=== PATIENT | female | born 1945 | race Caucasian/White ===

== ENCOUNTER 2018-02-25 17:33 | Emergency (ER) | payer MEDICARE, OTHER ==
[~2018-02-25] VITALS: Ht 154.9 cm; Wt 64.4 kg
[~2018-02-25 17:33] MED LIST: ASPIR 8181 MG PO; HYDROCODONE-AP1 EAC6 PO; LIPITOR 20 MG T20 M1 PO; LOPRESSOR 50 MG50 M1 PO; NOHOMEMEDICATIONS; NORVASC5 MG PO; PROBIOTIC1 EAC1 PO; TRANSDERM-SCO1 PATC1 TD; VALIUM5 MG PO; VITAMIN B122500 MCG PO
[2018-02-25 18:18] LABS: URINE BILIRUBIN NEGATIVE (Negative); URINE BLOOD 3+ (Negative); URINE CLARITY CLEAR; URINE COLOR STRAW; URINE GLUCOSE-RANDOM NEGATIVE (Negative); URINE KETONES NEGATIVE (Negative); URINE LEUKOCYTES-REFLEX TRACE (Negative); URINE NITRITE-REFLEX NEGATIVE (Negative); URINE PROTEIN NEGATIVE (Negative); URINE SPECIFIC GRAVITY <= 1.005 (1.005-1.030); URINE UROBILINOGEN 0.2 E.U./dl (0.2-1.0)
[2018-02-25 18:19] LABS: ABSOLUTE LYMPHOCYTES 1.3 thou/uL (0.8-5.3); ABSOLUTE MONOCYTES 0.7 thou/uL (0.0-1.2); ABSOLUTE NEUTROPHILS 6.2 thou/uL (1.6-8.1); BASOPHILS 0.4 %; EOSINOPHILS 0.5 %; HEMATOCRIT 36.5 % (37.0-47.0); HEMOGLOBIN 12.3 gm/dL (12.0-15.0); LYMPHOCYTES 15.4 %; MCH 28.8 pg (26.0-34.0); MCHC 33.6 g/dL (28.0-37.0); MCV 85.5 fL (80.0-100.0); MONOCYTES 8.5 %; MPV 7.9 fl. (7.2-11.1); NUCLEATED RBCS 0 /100WBC; PLATELET COUNT* 400 thou/uL (150-400); POLYS 75.2 %; RBC 4.27 mil/uL (4.20-5.00); RDW-CV 14.5 % (10.5-14.5); WBC 8.3 thou/uL (4.0-11.0)
[2018-02-25 18:24] LABS: SQUAMOUS 0-3 Few /LPF (0-3)
[2018-02-25 18:25] LABS: BACTERIA-REFLEX None Seen /HPF (None Seen); CASTS None Seen /LPF (None Seen); CRYSTALS None Seen /LPF (None Seen); MUCUS 0-3 Light strn/LPF (None Seen); URINE WBC-REFLEX 0-5 Rare /HPF (0-5)
[2018-02-25 18:26] LABS: ANION GAP 13 mmol/L (7-16); BUN 18 mg/dL (7-18); CALCIUM 9.2 mg/dL (8.5-10.1); CHLORIDE 103 mmol/L (98-107); CO2 22 mmol/L (21-32); CREATININE 1.4 mg/dL (0.6-1.3); GLUCOSE 113 mg/dL (70-99); POTASSIUM 3.4 mmol/L (3.5-5.1); SODIUM 138 mmol/L (136-145)
[2018-02-25 18:37] LABS: ALBUMIN 2.9 g/dL (3.4-5.0); ALKALINE PHOSPHATASE 128 U/L (46-116); LIPASE 124 U/L (73-393); NT-PRO BRAIN NAT PEPTIDE 773 pg/mL (<300); SGOT 26 U/L (15-37); SGPT 43 U/L (30-65); TOTAL BILIRUBIN 0.3 mg/dL (<0.1-1.0); TOTAL PROTEIN 8.8 g/dL (6.4-8.2); TROPONIN-I LEVEL <0.06 ng/mL (<0.06)
[2018-02-25] MEDS ORDERED: POTASSIUM20 PO (20:35)
[2018-02-25] MEDS ORDERED: LASIX 20 MG TAB20 MG PO (20:35)
[2018-02-25 20:56] VITALS: BP 138/81
--- NOTE | 2018-02-26 14:57 | EKG ---
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: Luis JACOBO : 1945 Requested By: Lolis Goodwin Order Number: [id number] MD: Osvaldo Livingston Measurements Intervals [place] Rate: 83 P: 62 AK: 172 QRS: 16 QRSD: 86 T: -5 QT: 355 QTc: 418 Interpretive Statements Sinus rhythm Low voltage, precordial leads Compared to ECG 11/16/2015 11:34:57 Low QRS voltage now present Sinus bradycardia no longer present Electronically Signed On 02-26-2018 14:57:05 CDT by Osvaldo Livingston [email or web address] <ELECTRONICALLY SIGNED> By: Osvaldo Livingston MD, FAC 02/26/18 1457 1806 1806 Osvaldo Livingston MD, [facility] /EPI
[2018-07-18] MEDS ORDERED: CARVEDILOL12.5 MG PO (13:05)
[2018-07-18] MEDS ORDERED: HYDRALAZINE 10M10 MG PO (13:06)
[2018-07-18] MEDS ORDERED: PREDNISONE 20 M20 MG PO (13:07)
[2018-07-18] MEDS ORDERED: VITAMIN D2000 UNIT PO (13:08)
[2018-07-18] MEDS ORDERED: IRON325 PO (13:08)
[2018-07-18] MEDS ORDERED: NORCO 5-325 TA1 EACH PO (13:09)
[2018-07-18] MEDS ORDERED: ONDANSETRON HCL4 M2 PO (13:09)
[2018-07-18] MEDS ORDERED: ATIVAN0.5 MG PO (13:10)
[2018-07-18] MEDS ORDERED: CALCIUM ACETAT667 MG PO (13:12)
[2018-07-25] MEDS ORDERED: NORCO 5-325 TA1 EACH PO (08:48)
== END 2018-02-25 20:56 | disposition home or self-care (01) ==
LOC: M.ERS 17:33
PROVIDERS: Physician Assistant
DX: R53.83 Other fatigue (principal); E87.6 Hypokalemia; I10 Essential (primary) hypertension; Z90.49 Acquired absence of other specified parts of digestive tract; Z90.710 Acquired absence of both cervix and uterus; Z88.8 Allergy status to other drugs, medicaments and biological substances

== ENCOUNTER 2018-06-19 08:51 | Emergency (ER) | payer MEDICARE, OTHER ==
[~2018-06-19] VITALS: Ht 154.9 cm; Wt 62.6 kg
[~2018-06-19 08:51] MED LIST changes: +LASIX 20 MG TAB20 MG PO; +POTASSIUM20 PO
[2018-06-19 09:29] LABS: HEMATOCRIT 31.1 % (37.0-47.0); HEMOGLOBIN 10.3 gm/dL (12.0-15.0); MCH 32.8 pg (26.0-34.0); MCHC 33.3 g/dL (28.0-37.0); MCV 98.6 fL (80.0-100.0); MPV 8.2 fl. (7.2-11.1); NUCLEATED RBCS 0 /100WBC; PLATELET COUNT* 195 thou/uL (150-400); RBC 3.16 mil/uL (4.20-5.00); RDW-CV 20.5 % (10.5-14.5); WBC 12.6 thou/uL (4.0-11.0)
[2018-06-19 09:34] LABS: ANION GAP 9 mmol/L (7-16); BUN 43 mg/dL (7-18); CALCIUM 8.1 mg/dL (8.5-10.1); CHLORIDE 98 mmol/L (98-107); CO2 27 mmol/L (21-32); CREATININE 4.8 mg/dL (0.6-1.3); GLUCOSE 103 mg/dL (70-99); POTASSIUM 3.7 mmol/L (3.5-5.1); SODIUM 134 mmol/L (136-145)
[2018-06-19 09:41] LABS: URINE BILIRUBIN NEGATIVE (Negative); URINE BLOOD 3+ (Negative); URINE CLARITY CLEAR; URINE COLOR YELLOW; URINE GLUCOSE-RANDOM NEGATIVE (Negative); URINE KETONES NEGATIVE (Negative); URINE NITRITE-REFLEX NEGATIVE (Negative); URINE PROTEIN 2+ (Negative); URINE SPECIFIC GRAVITY 1.015 (1.005-1.030); URINE UROBILINOGEN 0.2 E.U./dl (0.2-1.0)
[2018-06-19 09:47] LABS: URINE LEUKOCYTES-REFLEX 2+ (Negative)
[2018-06-19 09:54] LABS: ALBUMIN 2.7 g/dL (3.4-5.0); ALKALINE PHOSPHATASE 77 U/L (46-116); LIPASE 281 U/L (73-393); NT-PRO BRAIN NAT PEPTIDE 18393 pg/mL (<300); SGOT 39 U/L (15-37); SGPT 36 U/L (30-65); TOTAL BILIRUBIN 0.2 mg/dL (<0.1-1.0); TOTAL PROTEIN 5.9 g/dL (6.4-8.2); TROPONIN-I LEVEL <0.06 ng/mL (<0.06)
[2018-06-19 09:59] LABS: BACTERIA-REFLEX 1-9 Few /HPF (None Seen); CASTS None Seen /LPF (None Seen); CRYSTALS None Seen /LPF (None Seen); MUCUS 0-3 Light strn/LPF (None Seen); SQUAMOUS 0-3 Few /LPF (0-3); URINE RBC 3-10 Few /HPF (0-2); URINE WBC-REFLEX 6-15 Few /HPF (0-5)
[2018-06-19 10:09] LABS: ABSOLUTE EOSINOPHILS 0.1 thou/uL (0.0-0.7); ABSOLUTE LYMPHOCYTES 1.8 thou/uL (0.8-5.3); ABSOLUTE MONOCYTES 0.3 thou/uL (0.0-1.2); ABSOLUTE NEUTROPHILS 10.5 thou/uL (1.6-8.1); PLATELET ESTIMATE ADEQUATE
[2018-06-19 10:10] LABS: ANISOCYTOSIS 1+; LARGE PLATELETS RARE; POIKILOCYTOSIS 1+
[2018-06-19 11:14] VITALS: BP 160/84
--- NOTE | 2018-06-19 19:35 | EKG ---
[place] [address] ELECTROCARDIOGRAM REPORT Name: NELLYBRAYDENVAN MCKEON Room: 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
[2018-07-18] MEDS ORDERED: CARVEDILOL12.5 MG PO (13:05)
[2018-07-18] MEDS ORDERED: HYDRALAZINE 10M10 MG PO (13:06)
[2018-07-18] MEDS ORDERED: PREDNISONE 20 M20 MG PO (13:07)
[2018-07-18] MEDS ORDERED: VITAMIN D2000 UNIT PO (13:08)
[2018-07-18] MEDS ORDERED: IRON325 PO (13:08)
[2018-07-18] MEDS ORDERED: NORCO 5-325 TA1 EACH PO (13:09)
[2018-07-18] MEDS ORDERED: ONDANSETRON HCL4 M2 PO (13:09)
[2018-07-18] MEDS ORDERED: ATIVAN0.5 MG PO (13:10)
[2018-07-18] MEDS ORDERED: CALCIUM ACETAT667 MG PO (13:12)
[2018-07-25] MEDS ORDERED: NORCO 5-325 TA1 EACH PO (08:48)
== END 2018-06-19 11:16 | disposition still patient (30) ==
LOC: M.ERS 08:51
PROVIDERS: Emergency Medicine
DX: R55 Syncope and collapse (principal); R51 Headache; I95.9 Hypotension, unspecified; I12.0 Hypertensive chronic kidney disease with stage 5 chronic kidney disease or end stage renal disease; N18.6 End stage renal disease; Z99.2 Dependence on renal dialysis; Z90.49 Acquired absence of other specified parts of digestive tract; Z88.8 Allergy status to other drugs, medicaments and biological substances

== ENCOUNTER → 2018-07-25 | Day surgery (SDC) | payer MEDICARE, OTHER ==
[~2018-07-25] MED LIST changes: +ATIVAN0.5 MG PO; +CALCIUM ACETAT667 MG PO; +CARVEDILOL12.5 MG PO; +HYDRALAZINE 10M10 MG PO; +IRON325 PO; +NORCO 5-325 TA1 EACH PO; +ONDANSETRON HCL4 M2 PO; +PREDNISONE 20 M20 MG PO; +VITAMIN D2000 UNIT PO
[2018-07-25 06:23] LABS: HEMATOCRIT 41.6 % (37.0-47.0); HEMOGLOBIN 13.5 gm/dL (12.0-15.0); MCH 32.7 pg (26.0-34.0); MCHC 32.4 g/dL (28.0-37.0); MCV 100.9 fL (80.0-100.0); MPV 8.2 fl. (7.2-11.1); RBC 4.12 mil/uL (4.20-5.00); RDW-CV 20.8 % (10.5-14.5); WBC 11.2 thou/uL (4.0-11.0)
[2018-07-25 06:30] LABS: CALCIUM 8.5 mg/dL (8.5-10.1); CREATININE 5.1 mg/dL (0.6-1.3); POTASSIUM 4.7 mmol/L (3.5-5.1)
--- NOTE | 2018-08-08 08:50 | OP ---
[facility] [address] [place] [address] OPERATIVE REPORT Name: NELLYBRAYDENMIKEGRETCHENSanchez Nice Room: [facility]#: [id number] Admission: 07/25/18 Attend Phys: Giancarlo Weber Discharge: Date of : 45 Report #: [id number] THIS REPORT FOR: //name// CC: Zack Weber DATE OF SERVICE: 07/25/2018 PREOPERATIVE DIAGNOSIS: End-stage renal disease. POSTOPERATIVE DIAGNOSIS: End-stage renal disease. PROCEDURES: 1. Laparoscopic placement of tunneled intraperitoneal catheter. 2. Laparoscopic omentopexy. SURGEON: Giancarlo Weber M.D. ANESTHESIA: General. ESTIMATED BLOOD LOSS: Minimal. SPECIMENS: None. DESCRIPTION OF PROCEDURE: After informed consent was obtained, the patient was brought to the operating room and placed supine. SCDs were placed and working. Preoperative antibiotics were administered, general anesthesia was induced. The abdomen was prepped and draped in the usual sterile fashion. A 5-mm incision was made in the left upper quadrant. A 5-mm trocar was placed under direct vision. Pneumoperitoneum was established. A left-sided 5-mm port was placed. A left rectus sheath 8-mm port was placed. Omentopexy was then performed using a 2-0 Vicryl suture and a suture passer in the right upper quadrant. This suture was passed using the suture passer through the omentum and then tied up to the anterior abdominal wall, creating an omentopexy. I inserted a 62-cm Covidien catheter. The trocar was then removed and the cuff was then brought into the left rectus sheath. The cuff was then tunneled to the left upper quadrant of the abdomen. It flushed with 750 mL heparinized saline. It drained very easily. The ports were then removed. The skin was then closed with 4-0 Monocryl. Incisions were dressed with Steri-Strips and an occlusive dressing. COMPLICATIONS: [place] [address] OPERATIVE REPORT Name: VAN CALVO Room: [facility]#: [id number] Admission: 07/25/18 Attend Phys: Giancarlo Weber Discharge: Date of : 45 Report #: [id number] DISPOSITION: The patient was taken to recovery in satisfactory condition. <ELECTRONICALLY SIGNED> By: Giancarlo Weber MD 08/08/18 0850 0825 1023Giancarlo Weber MD /nt
== END | disposition home or self-care (01) ==
LOC: M.SUR 06:01
PROVIDERS: Surgery
DX: I12.0 Hypertensive chronic kidney disease with stage 5 chronic kidney disease or end stage renal disease (principal); N18.6 End stage renal disease; E78.00 Pure hypercholesterolemia, unspecified; Z79.899 Other long term (current) drug therapy; Z79.82 Long term (current) use of aspirin; Z88.8 Allergy status to other drugs, medicaments and biological substances; Z90.49 Acquired absence of other specified parts of digestive tract; Z82.49 Family history of ischemic heart disease and other diseases of the circulatory system; Z98.890 Other specified postprocedural states; Z87.442 Personal history of urinary calculi